=== PATIENT | male | born 1945 | race Caucasian/White ===

== ENCOUNTER 2019-07-09 23:57 | Emergency (ER) | payer BC, OTHER ==
[~2019-07-09] VITALS: Ht 185.4 cm; Wt 90.7 kg
[~2019-07-09 23:57] MED LIST: AMITRIPTYLINE H50 M2 PO; ASA81BEC; ASPIRIN EC81 M1; ASPIRIN EC81 M1 PO; ASPIRIN325 PO; ASPIRIN81 M2 PO; CELEXA 20 MG TA20 M1 PO; CLOPIDOGREL75 MG PO; ESCITALOPRAM OX20 MG PO; GLUCOPHAGE1000 MG; GLUCOPHAGE1000 MG PO; GLUCOPHAGE850 MG PO; GLUCOTROL10 MG; GLUCOTROL5 MG; GLUCOTROL5 MG PO; IBUPROFEN 600600 M1 PO; INVOKANA300 MG PO; LISINOPRIL5 MG; LISINOPRIL5 MG PO; LOPRESSOR25; LOPRESSOR25 PO; LYRICA 75 MG CA75 MG PO; METOPROLOL SUCC25 M1 PO; NEURONTIN 300300 M1 PO; NITROGLYCERIN0.4 MG; NITROGLYCERIN0.4 MG SL; NORVASC 2.5 MG2.5 M1 PO; NORVASC2.5 MG PO; PEPCID40 MG PO; PLAVIX 75 MG TA75 M1; PLAVIX 75 MG TA75 M1 PO; SIMVASTATIN40 MG; SIMVASTATIN40 MG PO; ULTRAM 50MG TAB50 MG PO; ZOFRAN ODT4 MG PO
[2019-07-10] MEDS ORDERED: INSULIN (00:02)
[2019-07-10 00:55] LABS: ABSOLUTE NEUTROPHILS 4.7 thou/uL (1.4-8.2); BASOPHILS 0.5 % (0.0-2.0); EOSINOPHILS 1.8 % (0.0-3.0); HEMATOCRIT 40.8 % (42.0-52.0); HEMOGLOBIN 13.6 gm/dL (14.0-18.0); LYMPHOCYTES 23.1 % (24.0-44.0); MCH 30.7 pg (26.0-34.0); MCHC 33.5 g/dL (28.0-37.0); MCV 91.7 fL (80.0-100.0); MONOCYTES 7.7 % (1.0-8.0); PLATELET COUNT 143 thou/uL (150-400); POLYS 66.9 % (36.0-66.0); RBC 4.45 mil/uL (4.50-6.00); RDW 13.4 % (10.5-14.5)
[2019-07-10 00:58] LABS: ANION GAP 7 mmol/L (7-16); BUN 22 mg/dL (7-18); CALCIUM 8.5 mg/dL (8.5-10.1); CHLORIDE 101 mmol/L (98-107); CO2 31 mmol/L (21-32); CREATININE 0.9 mg/dL (0.7-1.3); GLUCOSE 193 mg/dL (74-106); POTASSIUM 4.3 mmol/L (3.5-5.1); SODIUM 139 mmol/L (136-145)
[2019-07-10 01:08] LABS: ALBUMIN 3.3 g/dL (3.4-5.0); DIRECT BILIRUBIN < 0.1 mg/dL (<0.1-0.2); SGOT 13 U/L (15-37); SGPT 18 U/L (30-65); TOTAL BILIRUBIN 0.2 mg/dL (<0.1-1.0); TOTAL PROTEIN 7.1 g/dL (6.4-8.2); TROPONIN-I <0.06 ng/mL (<0.06)
[2019-07-10] MEDS ORDERED: GUAIFEN-CODEINE10 ML PO (02:45)
[2019-07-10] MEDS ORDERED: TESSALON PERLE100 MG PO (02:45)
[2019-07-10 03:04] VITALS: BP 131/75
--- NOTE | 2019-07-11 08:13 | EKG ---
[facility] [place] [address] ELECTROCARDIOGRAM REPORT Name: SCOTT JONES Room #: DEP [facility].R.#: [id number] Admission: 07/09/19 Attend Phys: Discharge: 07/10/19 Date of : 49 Report #: [id number] THIS REPORT FOR: cc: Christiano Ramos MD, Rene P. MD Lundgren,Marcello Méndez MD [facility] ~ THIS REPORT FOR: //name// [facility] ED Test Date: 2019-07-10 Test Time: 00:23:37 Pat Name: SCOTT JONES Department: Room: Gender: Rn Transport: DUGLAS : 1945 Requested By: Tosin Pires Order Number: [id number] MD: Marcello Manzanares Measurements Intervals [place] Rate: 73 P: 48 LA: 137 QRS: 73 QRSD: 103 T: 43 QT: 416 QTc: 459 Interpretive Statements Sinus rhythm Minimal diffuse ST elevation Compared to ECG 07/30/2013 17:09:28 no significant change was found Electronically Signed On 07-11-2019 8:12:11 SUPERVISOR TWISTING DEPARTMENT by Marcello Manzanares [email or web address] <ELECTRONICALLY SIGNED> By: Marcello Manzanares MD, [facility] 07/11/19 0812 0023 0023 Marcello Manzanares MD, [facility] /EPI
== END 2019-07-10 03:05 | disposition home or self-care (01) ==
LOC: ER 23:57
PROVIDERS: Emergency Medicine
DX: J11.1 Influenza due to unidentified influenza virus with other respiratory manifestations (principal); E11.9 Type 2 diabetes mellitus without complications; I10 Essential (primary) hypertension; Z79.899 Other long term (current) drug therapy; Z79.4 Long term (current) use of insulin; Z87.891 Personal history of nicotine dependence; Z95.5 Presence of coronary angioplasty implant and graft

== ENCOUNTER 2019-10-07 12:25 | Inpatient (IN) | payer BC, OTHER ==
[~2019-10-07] VITALS: Ht 185.4 cm; Wt 64.1 kg
[~2019-10-07 12:25] MED LIST changes: +GUAIFEN-CODEINE10 ML PO; +INSULIN; +TESSALON PERLE100 MG PO
--- NOTE | 2019-10-07 12:25 | NUR ---
PT IN THE WAITING ROOM ON THE PHONE WITH THE DOCTOR, PT WOULD NOT COME IN THE TRIAGE ROOM FOR AN EKG
[2019-10-07 12:54] VITALS: BP 126/69
[2019-10-07 13:16] LABS: ABSOLUTE NEUTROPHILS 3.4 thou/uL (1.4-8.2); BASOPHILS 0.8 % (0.0-2.0); EOSINOPHILS 1.6 % (0.0-3.0); HEMATOCRIT 44.9 % (42.0-52.0); HEMOGLOBIN 15.3 gm/dL (14.0-18.0); LYMPHOCYTES 34.5 % (24.0-44.0); MCH 31.6 pg (26.0-34.0); MCHC 34.2 g/dL (28.0-37.0); MCV 92.3 fL (80.0-100.0); MONOCYTES 8.7 % (1.0-8.0); POLYS 54.4 % (36.0-66.0); RBC 4.86 mil/uL (4.50-6.00); RDW 13.4 % (10.5-14.5); WBC 6.2 thou/uL (4.0-11.0)
[2019-10-07] MEDS ORDERED: GLIPIZIDE 10 MG10 MG PO (13:17)
[2019-10-07] MEDS ORDERED: PRINIVIL10 MG PO (13:20)
[2019-10-07] MEDS ORDERED: METOPROLOL TART25 MG PO (13:22)
[2019-10-07 13:23] LABS: ANION GAP 8 mmol/L (7-16); BUN 12 mg/dL (7-18); CALCIUM 8.8 mg/dL (8.5-10.1); CHLORIDE 101 mmol/L (98-107); CO2 28 mmol/L (21-32); CREATININE 0.9 mg/dL (0.7-1.3); GLUCOSE 191 mg/dL (74-106); POTASSIUM 4.2 mmol/L (3.5-5.1); SODIUM 137 mmol/L (136-145)
[2019-10-07] MEDS ORDERED: LEXAPRO 10 MG T10 M1 PO (13:23)
[2019-10-07 13:34] LABS: ALBUMIN 3.9 g/dL (3.4-5.0); SGOT 14 U/L (15-37); SGPT 22 U/L (30-65); TOTAL BILIRUBIN 0.3 mg/dL (0.2-1.0); TROPONIN-I <0.06 ng/mL (<0.06)
[2019-10-07 13:45] LABS: LARGE PLATELETS RARE; PLATELET COUNT 147 thou/uL (150-400)
[2019-10-07 15:05] VITALS: BP 124/59
[2019-10-07 15:59] VITALS: BP 127/69
[2019-10-07 16:30] VITALS: BP 112/66
[2019-10-07 16:45] VITALS: BP 112/66
--- NOTE | 2019-10-07 18:33 | NUR ---
PT CARE ASSUMED AT 1615. ASSESSMENTS CHARTED. MEDICATION CHARTED. PT ARRIVED FROM ER. CARDIAC CATH PT OF DR DAHL; CAME IN EARLY DUE TO CHEST PAIN. COMPLAINED OF SLIGHT RT CHEST PAIN. VSS. STRIP .
[2019-10-07 19:57] VITALS: BP 139/66
[2019-10-08] VITALS (16 sets, daily range): BP systolic 103–147; BP diastolic 52–89
[2019-10-08 05:37] LABS: HEMATOCRIT 45.7 % (42.0-52.0); HEMOGLOBIN 15.4 gm/dL (14.0-18.0); MCH 31.1 pg (26.0-34.0); MCHC 33.8 g/dL (28.0-37.0); RBC 4.97 mil/uL (4.50-6.00); RDW 13.4 % (10.5-14.5); WBC 5.8 thou/uL (4.0-11.0)
[2019-10-08 05:49] LABS: CALCIUM 8.6 mg/dL (8.5-10.1); CREATININE 0.6 mg/dL (0.7-1.3)
[2019-10-08 05:50] LABS: CHOLESTEROL 151 mg/dL (<200); HDL CHOLESTEROL 31 mg/dL (>40); LDL CHOLESTEROL 76 mg/dL (<100); TC:HDL 4.9 Ratio (Not establshd); TRIGLYCERIDE 223 mg/dL (<150); VLDL 45 mg/dL (<40)
[2019-10-08 06:05] LABS: SERUM ASSESSMENT Clear
--- NOTE | 2019-10-08 08:03 | NUR ---
ASSESSMENTS CHARTED, MEDS GIVEN CHARTED. PATIENT RESTING IN BED DURING SHIFT. PATIENT WAS VERY ANXIOUS AND NERVOUS DURING THE BEGINNING OF THE SHIFT. PATIENT RELAXED HOSPITAL WORKINGS AND PROCEDURES WERE DISCUSSED. PATIENT IS SCHEDULED FOR THE WASH PLANT OPERATOR THIS MORNING. HAS BEEN NPO SINCE MIDNIGHT. ACHS, NO COVERAGE NEEDED AT HS. FALL PRECAUTIONS IN PLACE DURING SHIFT.
--- NOTE | 2019-10-08 08:30 | EKG ---
[facility] [place] [address] ELECTROCARDIOGRAM REPORT Name: SCOTT JONES Room #: 203-P ADM IN M.R.#: [id number] Admission: 10/07/19 Attend Phys: Omar Ford MD Discharge: Date of : 49 Report #: [id number] THIS REPORT FOR: cc: Christiano Ramos MD, Rene P. MD Lundgren,Marcello Méndez MD [facility] ~ THIS REPORT FOR: //name// [facility] ED Test Date: 2019-10-07 Test Time: 12:50:47 Pat Name: SCOTT JONES Department: Room: 203 P Gender: M Powertrain Design Engineer: KRISTIAN : 1945 Requested By: Roberto Paredes Order Number: [id number] MD: Marcello Manzanares Measurements Intervals [place] Rate: 69 P: 9 MO: 170 QRS: -18 QRSD: 106 T: 28 QT: 407 QTc: 436 Interpretive Statements Sinus rhythm Inferior infarct, old No previous ECGs available for comparison Electronically Signed On 10-08-2019 8:27:57 CDT by Marcello Manzanares [email or web address] <ELECTRONICALLY SIGNED> By: Marcello Manzanares MD, [facility] 10/08/19 0827 1250 1250 Marecllo Manzanares MD, [facility] /EPI
--- NOTE | 2019-10-08 16:16 | CATHLAB ---
[facility] [place] [address] INVASIVE PROCEDURE REPORT Name: SCOTT JONES Room #: 211-P ADM IN M.R.#: [id number] Admission: 10/07/19 Attend Phys: Omar Ford MD Discharge: Date of : 49 Report #: [id number] THIS REPORT FOR: cc: Christiano Ramos MD, Rene P. MD Park, Jin S. MD ~ APPROVED REPORT Study performed: 10/08/2019 07:42:52 Patient Details Patient Status: In-Patient Room #: The patient is a 73 year-old male Event Personnel Maninder Canales Officer Lieutenant, María Howard RN RN, Marlon Haynes RN RN, Martinez Julio RN, Monitor, Dixon, Karen Scrub Procedures Performed Left Heart Cath Indication Dyspnea, Unstable angina , Chest pain Risk Factors Hypercholesterolemia, Coronary Artery DiseaseHypertension, Diabetes Previous Procedures/Diagnoses Previous PCI, Previous [place] Procedure Narrative The Right Groin^ was infiltrated with 1% Lidocaine subcutaneous anesthesia. A PINNACLE 4FR Sheath #[id number] sheath was inserted into the RFA. Coronary angiography was performed using coronary diagnostic catheters. The right coronary system was accessed and visualized with a JR4 catheter. The left coronary system was accessed and visualized with a JL5 catheter. The left ventricle was accessed and visualized with a angled pigtail catheter. Left ventricular/Aortic Valve gradient assessed via catheter pullback. Left ventriculogram was performed in 30 degree projection. Hemostasis was obtained with manual pressure following sheath removal without any complications. The patient tolerated the procedure well and there were no complications associated with the procedure. There was no [facility] [address] [place] [address] INVASIVE PROCEDURE REPORT Name: SCOTT JONES Room #: 211-P ADM IN ..#: [id number] Admission: 10/07/19 Attend Phys: Omar Ford MD Discharge: Date of : 49 Report #: [id number] hematoma. Intraoperative Conscious Sedation Sedation start time: 08:22 Case end Time: 08:55 Fentanyl 50 mcg Versed 1 mg Fluoro Time: 3.50 minutes Dose: DAP 7451.00 cGycm2 1984 mGy Contrast Type and Amount: Omnipaque-135ml Coronary Angiography The patient's coronary anatomy is right dominant. Diagnostic Cath Left Main This is a large-caliber vessel with mild disease distally. LAD There is moderate disease in the proximal segment. There is a patent stent in the midsegment. Just before the stent, there is a de mohini stenosis of 70%. Diagonal 1 There is an ostial stenosis of the first diagonal artery, 50%. There is a stent in the proximal segment with a severe restenotic lesion of 70%. Circumflex This is a small caliber vessel with no flow-limiting lesions. Right Coronary The RCA is a dominant vessel with a severe restenotic lesion in the midsegment, 95%. R PDA This is a patent vessel, with no flow-limiting lesions. RPLV This is a patent vessel, with no flow-limiting lesions. Ramus This is a moderate-sized caliber vessel, divides into 2 branches supplying the anterolateral wall. This vessel is patent with no flow-limiting lesions. Left Ventriculography The left ventricle is normal in size with normal contractility. The left ventricular ejection fraction is estimated to be >55%. There is subtle hypokinesis of the anterior lateral and apical segments. Hemodynamics The aortic pressure is 113/72 mmHg with a mean of 94 mmHg. The left ventricular pressure is 134/4 mmHg with a mean of mmHg. The left ventricular end diastolic pressure is 16 mmHg. [facility] [address] [address] INVASIVE PROCEDURE REPORT Name: SCOTT JONES Room #: 211-P [facility] IN M.R.#: [id number] Admission: 10/07/19 Attend Phys: Omar Ford MD Discharge: Date of : 49 Report #: [id number] Conclusion 1. Severe multivessel disease involving the LAD, diagonal, and RCA. 2. Normal LV systolic function with subtle hypokinesis of the anterolateral and apical regions. 3. Recommend CV surgical consultation. 4. Recommend guideline directed medical therapy and risk factor management. <ELECTRONICALLY SIGNED> By: Maninder Canales MD 10/08/19 1614 1614 1614 Maninder Canales MD /INF
--- NOTE | 2019-10-08 17:52 | NUR ---
PT CARE ASSUMED AT 0700. ASSESSMENTS CHARTED. MEDICATIONS CHARTED. PT TO [facility] AT 0735; RETURNED AT 0940. HEMOSTASIS AT 0911. BEDREST COMPLETE. INCISION SITE C/D/I. NO INTERVENTIONS PERFORMED. ADDITIONAL CARDIAC CATH SCHEDULED FOR 10/09/19. PT TO BE NPO AFTER 0000.
[2019-10-09] VITALS (12 sets, daily range): BP systolic 103–141; BP diastolic 54–89
[2019-10-09 05:29] LABS: MCH 30.8 pg (26.0-34.0); MCHC 33.3 g/dL (28.0-37.0); MCV 92.5 fL (80.0-100.0); RBC 4.86 mil/uL (4.50-6.00); RDW 13.4 % (10.5-14.5); WBC 5.6 thou/uL (4.0-11.0)
[2019-10-09 05:50] LABS: CALCIUM 8.6 mg/dL (8.5-10.1); CREATININE 0.7 mg/dL (0.7-1.3); POTASSIUM 4.2 mmol/L (3.5-5.1)
--- NOTE | 2019-10-09 07:59 | NUR ---
ASSUMMED PT CARE AT 1900, PT IS AWAKE, ALERT AND ORIENTEDX4, MAKES NEEDS KNOWN, ASSESSMENTS CHARTED, SR ON THE MONITOR, VSS, RIGHT GROIN SITE CLEAN, DRY AND INTACT, REMAINED NPO AFTER MIDNIGHT, REMAINED STABLE THROUGH THE NIGHT, PASSED ON REPORT TO DAY SHIFT NURSE
--- NOTE | 2019-10-09 10:04 | NUR ---
AAOX4. CALM. COOPERATIVE. QUESTIONS ANSWERED ABOUT CARDIAC CATH PROCEDURES. NPO AFTER MIDNIGHT FOR CATH. NSR PER TELE. DENIES CP. WILL CONTINUE TO FOLLOW CLOSELY.
--- NOTE | 2019-10-09 14:09 | HC ---
[facility] [place] [address] CONSULTATION Name: SCOTT JONES Room #: 211-P ADM IN M.R.#: [id number] Admission: 10/07/19 Attend Phys: Omar Ford MD Discharge: Date of : 49 Report #: [id number] THIS REPORT FOR: cc: Christiano Ramos MD, Rene P. MD Forman, John M. MD ~ CC: Omar Ramos DATE OF SERVICE: 10/08/2019 We were asked by Dr. Canales to see the patient. HISTORY OF PRESENT ILLNESS: The patient is a 73-year-old with exertional angina. He was admitted yesterday. The patient had been scheduled to have cardiac catheterization today, but came in with exertional chest pain. The patient states that he had been previously tested negative for COVID. He has history of diabetes and cardiac stents placed in 2011 and 2012. MEDICATIONS: At home include simvastatin, amlodipine, Invokana, insulin, glipizide, lisinopril, metoprolol, Lexapro, Glucophage, aspirin. 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 SOCIAL HISTORY: The patient works in maintenance for [employer]. Former cigarette smoker, does use alcohol, no recreational drug use. REVIEW OF SYSTEMS: CONSTITUTIONAL: Denies fever or chills. EYES: Denies eye pain or visual change. HENT: Denies headache, rhinorrhea, sore throat. RESPIRATORY: Denies cough, shortness of breath. CARDIAC: Exertional discomfort. No pain at rest. No palpitations. GASTROINTESTINAL: No nausea, vomiting, diarrhea. GENITOURINARY: No urgency, frequency, blood. MUSCULOSKELETAL: No bone or joint pain. SKIN: No rash or infection. NEUROLOGIC: No motor or sensory dysfunction. ENDOCRINE: No goiter. No palpitations. No tremor. HEMATOLOGIC: Denies bruisability or bleeding. PHYSICAL EXAMINATION: GENERAL: The patient is lying in bed comfortably. VITAL SIGNS: Temperature 36.7, heart rate 69, respiratory rate 14, O2 sat 95 on room air. HEENT: No scleral icterus, no arcus. [facility] [address] [place] [address] CONSULTATION Name: SCOTT JONES Room #: 211-P [facility] IN .R.#: [id number] Admission: 10/07/19 Attend Phys: Omar Ford MD Discharge: Date of : 49 Report #: [id number] NECK: No mass, no bruit. CHEST: Clear to auscultation. HEART: Rhythm regular, no murmur. ABDOMEN: Soft. EXTREMITIES: No clubbing, cyanosis or edema. The patient has a mesomorphic habitus. VASCULAR: Strong distal pulses. No obvious saphenous vein problems. SKIN: No rash or infection. NEUROLOGIC: No motor or sensory dysfunction. MUSCULOSKELETAL: No bone or joint asymmetry or deformity. ASSESSMENT: The patient has coronary artery disease. Catheterization today demonstrated in-stent stenosis related to a right coronary stent. The left anterior descending and first diagonal have some mild stenosis related to in-stent disease, but probably not critically narrow in these spots. I discussed coronary artery bypass surgery which in general would be preferred for multivessel disease and with diabetes mellitus and compared and contrasted it with limited treatment using stent for the right coronary. The patient prefers the limited approach and understands that there may be progression of disease in the future. Risks and details, options and alternatives were discussed in full. The patient understands all of this and prefers the stent approach. It is a privilege to participate in this challenging patient's care. Thank you for the consult. <ELECTRONICALLY SIGNED> By: Calvin Lubin MD 10/09/19 1409 1310 1412 Calvin Lubin MD /nt
--- NOTE | 2019-10-09 14:25 | NUR ---
Chart reviewed and case discussed with the care team. Pt lives alone in an apt and is indep with gait and adl's. He works fulltime and has health ins coverage through his employer. He has a pcp and powder worker tnt for f/u care at [place]. He is not interested in CTS consult for heart surgery at this time. Will follow along should dc needs arise.
--- NOTE | 2019-10-09 14:38 | NUR ---
BACK FROM OXYGRAPH OPERATOR BY BED, REPORT FROM SUZI MAYO. AAOX4. DENIES PAIN. LEFT GROIN SITE CDI. VSS. BEDREST UNTIL 1630.
[2019-10-09 16:01] LABS: HEMATOCRIT 43.8 % (42.0-52.0); HEMOGLOBIN 14.8 gm/dL (14.0-18.0); MCH 31.1 pg (26.0-34.0); MCHC 33.8 g/dL (28.0-37.0); MCV 91.9 fL (80.0-100.0); RBC 4.76 mil/uL (4.50-6.00); RDW 13.3 % (10.5-14.5); WBC 6.1 thou/uL (4.0-11.0)
--- NOTE | 2019-10-09 16:08 | CATHLAB ---
[facility] [address] INVASIVE PROCEDURE REPORT Name: SCOTT JONES Room #: 211-P ADM IN M.R.#: [id number] Admission: 10/07/19 Attend Phys: Omar Ford MD Discharge: Date of : 49 Report #: [id number] THIS REPORT FOR: cc: Christiano Ramos MD, Rene P. MD Park, Jin S. MD ~ APPROVED REPORT Study performed: 10/09/2019 12:03:42 Patient Details Patient Status: In-Patient Room #: 211 The patient is a 73 year-old male Event Personnel Maninder Canales Insole And Heel Stiffener, Marlon Haynes RN RN, María Howard RN RN, Brett Richards RTR Monitor, Kimber Dinh RTR Scrub Procedures Performed Art Access - L femoral artery* ROBERT Place w/wo Plasty Single LAD 905842 ROBERT Place w/wo Plasty Single RCA 199643 39222 Initial Mod Sed Same Phys/QHP Gr5y 549911 56127 Mod Sed Same Phys/QHP Ea 426559 Hemostasis w/ Mynx Indication Unstable angina , Please see the diagnostic cardiac catheterization on October 07 for full details of the coronary anatomy. He was evaluated by CV surgery and the patient has decided against it. He presents for staged angioplasty involving the LAD and RCA. Risk Factors Hypercholesterolemia, Coronary Artery DiseaseHypertension, Diabetes Previous Procedures/Diagnoses Previous PCI, Previous [place] Procedure Narrative The patient was brought electively to the Cardiac Catheterization Laboratory and was prepped and draped in a sterile manner. The Left Groin^ was infiltrated with 1% Lidocaine subcutaneous anesthesia. A PINNACLE 6FR Sheath #[id number] sheath was inserted into the LFA^. Coronary angiography was performed using coronary diagnostic catheters. Closure device was deployed with a Fr MYNXGRIP 6/7F [facility] [address] INVASIVE PROCEDURE REPORT Name: SCOTT JONES Room #: 211-P [facility] IN .R.#: [id number] Admission: 10/07/19 Attend Phys: Omar Ford MD Discharge: Date of : 49 Report #: [id number] #[id number]. The patient tolerated the procedure well and there were no complications associated with the procedure. There was no hematoma. Intraoperative Conscious Sedation Sedation start time: 12:30 Case end Time: 13:40 Fentanyl 50 mcg Versed 1 mg Fluoro Time: 17.22 minutes Dose: DAP 11950.40 cGycm2 2247 mGy Contrast Type and Amount: Omnipaque 375 ml Hemodynamics The aortic pressure is 130/60 mmHg with a mean of mmHg. PCI Technique Lesion Percutaneous coronary intervention was performed on the mid right coronary artery. The lesion stenosis prior to intervention was 95% with IVON 3 flow. A JR4 SH Guide Catheter was used to engage the RCA ostium. A Luge Wire .014 x 182CM #[id number] Interventional Guidewire was used to cross the lesion. BALLOON DILATION A Balloon catheter TREK RX 2.5 X 12 #[id number] was inserted and inflated up to 10.00atm for 14seconds. Additional Inflation: 10.00atm for 12seconds. Additional Inflation: 10.00atm for 11seconds. STENT DEPLOYMENT A stent RESOLUTE OSBALDO RX 2.5 X 18 #[id number] was inserted and inflated up to 14.00atm for 25seconds. POST STENT DEPLOYMENT BALLOON DILATION A Balloon catheter TREK NC RX 2.75 X 12 #[id number] was inserted and inflated up to 18.00atm for 21seconds. Additional Inflation: 18.00atm for 23seconds. Additional Inflation: 18.00atm for 14seconds. Final angiography reveals 0 % stenosis with IVON 3 flow. PCI Technique Lesion 2 Percutaneous Coronary Intervention was performed on the proximal left anterior descending artery segment. The lesion stenosis prior to intervention was 75% with IVON 3 flow. A VISTA 6FR XB 4 #[id number] Guide Catheter was used to engage the ostium. A Luge Wire .014 x 182CM #[id number] Interventional Guidewire was used to cross the lesion. [address] [address] INVASIVE PROCEDURE REPORT Name: SCOTT JONES Room #: 211-P [facility] IN M.R.#: [id number] Admission: 10/07/19 Attend Phys: Omar Ford MD Discharge: Date of : 49 Report #: [id number] Balloon Dilation A Balloon catheter TREK RX 2.5 X 12 #[id number] was inserted and inflated up to 10.00atm for 8seconds. Additional Inflation: 10.00atm for 12seconds. Stent Deployment A stent RESOLUTE OSBALDO RX 2.5 X 15 #[id number] was inserted and inflated up to 12.00atm for 22seconds. Additional Inflation: 18.00atm for 14seconds. Post Stent Deployment Balloon Dilation A Balloon catheter TREK NC RX 2.75 X 12 #[id number] was inserted and inflated up to 18.00atm for 15seconds. Additional Inflation: 14.00atm for 15seconds. Additional Inflation: 18.00atm for 16seconds. Final angiography reveals 0 % stenosis with IVON 3 flow. Conclusion 1. Successful insertion of drug-eluting stents into the RCA and LAD. 2. Recommend dual antiplatelet therapy and aggressive risk factor management. <ELECTRONICALLY SIGNED> By: Maninder Canales MD 10/09/19 1606 05 160 Maninder Canales MD /INF
[2019-10-09 16:13] LABS: CALCIUM 8.7 mg/dL (8.5-10.1); POTASSIUM 4.4 mmol/L (3.5-5.1)
[2019-10-10 00:01] VITALS: BP 1121/69; BP 121/69
[2019-10-10 04:19] VITALS: BP 109/59
[2019-10-10 04:25] VITALS: BP 109/59
[2019-10-10 06:02] LABS: HEMATOCRIT 43.7 % (42.0-52.0); HEMOGLOBIN 14.9 gm/dL (14.0-18.0); MCH 31.3 pg (26.0-34.0); MCHC 34.1 g/dL (28.0-37.0); MCV 91.8 fL (80.0-100.0); RBC 4.76 mil/uL (4.50-6.00); RDW 13.5 % (10.5-14.5); WBC 6.4 thou/uL (4.0-11.0)
[2019-10-10 06:38] LABS: ALBUMIN 3.5 g/dL (3.4-5.0); CALCIUM 8.6 mg/dL (8.5-10.1); CREATININE 0.8 mg/dL (0.7-1.3); POTASSIUM 3.9 mmol/L (3.5-5.1); TOTAL BILIRUBIN 0.3 mg/dL (0.2-1.0); TOTAL PROTEIN 7.1 g/dL (6.4-8.2)
[2019-10-10 07:00] VITALS: BP 120/58
--- NOTE | 2019-10-10 07:50 | NUR ---
SLEPT MOST OF SHIFT. WORKING ON GOALS AND PLAN OF CARE FOR NOC. UP AD BELEN IN ROOM WITH STEADY GAIT. BILATERAL GROIN DRESSINGS REMAIN D/I, NO BLEEDING OR HEMOTOMA. PROGRESSING SLOWLY TOWARDS DISCHARGE GOALS. CONTINUE TO ASSES.
[2019-10-10] MEDS ORDERED: EFFIENT10 MG PO (08:02)
--- NOTE | 2019-10-10 08:43 | EKG ---
[facility] [place] [address] ELECTROCARDIOGRAM REPORT Name: SCOTT JONES Room #: 211-P ADM IN M.R.#: [id number] Admission: 10/07/19 Attend Phys: Omar Ford MD Discharge: Date of : 49 Report #: [id number] THIS REPORT FOR: cc: Christiano Ramos MD, Rene P. MD Lundgren,Marcello Méndez MD [facility] ~ THIS REPORT FOR: //name// [facility] Test Date: 2019-10-09 Test Time: 15:58:14 Pat Name: SCOTT SCHNEIDERGABRIELLE Department: Room: 211 P Gender: M Isotope Technician: Edison MOLINA : 1945 Requested By: Maninder Canales Order Number: [id number] MD: Marcello Manzanares Measurements Intervals [place] Rate: 71 P: 31 CT: 148 QRS: 10 QRSD: 100 T: 41 QT: 404 QTc: 439 Interpretive Statements Sinus rhythm Inferior infarct, old Minimal diffuse ST segment elevation Compared to ECG 10/07/2019 12:50:47 ST (T wave) deviation now present Electronically Signed On 10-10-2019 8:41:03 CDT by Marcello Manzanares [email or web address] <ELECTRONICALLY SIGNED> By: Marcello Manzanares MD, [facility] 10/10/19 0841 1558 1558 Marcello Manzanares MD, [facility] /EPI
--- NOTE | 2019-10-10 08:50 | EKG ---
[facility] [place] [address] ELECTROCARDIOGRAM REPORT Name: SCOTT JONES Room #: 211-P ADM IN M.R.#: [id number] Admission: 10/07/19 Attend Phys: Omar Ford MD Discharge: Date of : 49 Report #: [id number] THIS REPORT FOR: cc: Christiano Ramos MD, Rene P. MD Lundgren,Marcello Méndez MD [facility] ~ THIS REPORT FOR: //name// [facility] Test Date: 2019-10-10 Test Time: 07:17:28 Pat Name: SCOTT JONES Department: Room: 211 P Gender: M Roll Reclaimer: JONY : 1945 Requested By: Maninder Canales Order Number: [id number] MD: Marcello Manzanares Measurements Intervals [place] Rate: 73 P: 11 DE: 144 QRS: -35 QRSD: 100 T: 13 QT: 405 QTc: 447 Interpretive Statements Sinus rhythm Left axis deviation Minimal, diffuse ST segment elevation Compared to ECG 10/07/2019 12:50:47 ST segment abnormality is slightly less prominent Electronically Signed On 10-10-2019 8:48:44 CDT by Marcello Manzanares [email or web address] <ELECTRONICALLY SIGNED> By: Marcello Manzanares MD, [facility] 10/10/19 0848 6 6 Marcello Manzanares MD, [facility] /EPI
[2019-10-10 11:31] VITALS: BP 120/58
--- NOTE | 2019-10-10 13:30 | NUR ---
ASSUMED CARE OF PATIENT AT 0700. ASSESSMENT COMPLETED. PATIENT HAS BILATERAL GROIN SITES WHICH ARE FREE FROM HEMATOMA, EDEMA OR DRAINAGE. PATIENT DENIES CHEST PAIN. PATIENT ANXIOUS TO LEAVE TODAY. IV AND TELE REMOVED. PATIENT TAKEN VIA WALKING ESCORT TO THE ED AT 1245 TO BE DRIVEN HOME BY HIS FAMILY MEMBER. DISCHARGE PAPERWORK REVIEWED AND SIGNED IN ADDITION TO A WORK RELEASE AND NEW SCRIPT AND INFORMATION ABOUT THAT NEW MED. PATIENT STATES THAT HE FEELS BETTER THAN HE DID WHEN HE ARRIVED.
== END 2019-10-10 12:50 | disposition home or self-care (01) | DRG 247 ==
LOC: ER 12:25 → 2N 14:55 → EROBS 14:55 → 2N 15:59
PROVIDERS: Emergency Medicine; Internal Medicine Cardiovascular Disease; Nurse Practitioner; ADMIT Hospitalist
PROC: B2111ZZ Fluoroscopy of Multiple Coronary Arteries using Low Osmolar Contrast (ICD-10-PCS; principal; 2019-10-08)
PROC: 4A023N7 Measurement of Cardiac Sampling and Pressure, Left Heart, Percutaneous Approach (ICD-10-PCS; principal; 2019-10-08)
PROC: B2151ZZ Fluoroscopy of Left Heart using Low Osmolar Contrast (ICD-10-PCS; principal; 2019-10-08)
PROC: 027135Z Dilation of Coronary Artery, Two Arteries with Two Drug-eluting Intraluminal Devices, Percutaneous Approach (ICD-10-PCS; 2019-10-09)
PROC: B2111ZZ Fluoroscopy of Multiple Coronary Arteries using Low Osmolar Contrast (ICD-10-PCS; 2019-10-09)
DX: I25.110 Atherosclerotic heart disease of native coronary artery with unstable angina pectoris (principal); E11.9 Type 2 diabetes mellitus without complications; I25.10 Atherosclerotic heart disease of native coronary artery without angina pectoris; I10 Essential (primary) hypertension; E78.5 Hyperlipidemia, unspecified; Z60.2 Problems related to living alone; G47.00 Insomnia, unspecified; F32.9 Major depressive disorder, single episode, unspecified; E53.8 Deficiency of other specified B group vitamins; Z91.010 Allergy to peanuts; Z87.891 Personal history of nicotine dependence; Z79.82 Long term (current) use of aspirin; Z95.5 Presence of coronary angioplasty implant and graft; Z79.899 Other long term (current) drug therapy
CPT/HCPCS: 10081; 10797

== ENCOUNTER → 2019-11-04 | Outpatient (CLI) | payer BC, OTHER ==
[~2019-11-04] MED LIST changes: +EFFIENT10 MG PO; +GLIPIZIDE 10 MG10 MG PO; +LEXAPRO 10 MG T10 M1 PO; +METOPROLOL TART25 MG PO; +PRINIVIL10 MG PO
== END ==
LOC: RAD 09:31
PROVIDERS: ATTEND Family Medicine
DX: J98.11 Atelectasis (principal); R91.8 Other nonspecific abnormal finding of lung field

== ENCOUNTER → 2019-11-22 | Outpatient (CLI) | payer BC, OTHER | LOC: RAD 12:25 | PROVIDERS: ATTEND Family Medicine | DX: R91.8 Other nonspecific abnormal finding of lung field (principal); J98.4 Other disorders of lung ==

== ENCOUNTER → 2019-11-25 | Outpatient (CLI) | payer BC, OTHER | LOC: SJCVC 09:25 | PROVIDERS: ATTEND Internal Medicine Cardiovascular Disease | DX: R94.31 Abnormal electrocardiogram [ECG] [EKG] (principal); I25.10 Atherosclerotic heart disease of native coronary artery without angina pectoris; I10 Essential (primary) hypertension; E78.00 Pure hypercholesterolemia, unspecified; Z79.899 Other long term (current) drug therapy; Z87.891 Personal history of nicotine dependence ==

== ENCOUNTER 2020-04-26 18:26 | Emergency (ER) | payer BC, OTHER ==
[~2020-04-26] VITALS: Ht 177.8 cm; Wt 90.7 kg
[2020-04-26] MEDS ORDERED: PENICILLIN VK500 M1 PO (19:21)
[2020-04-26] MEDS ORDERED: NORCO 5-325 TA1 EAC2 PO (19:21)
[2020-04-26 19:56] VITALS: BP 177/80
== END 2020-04-26 19:56 | disposition home or self-care (01) ==
LOC: ER 18:26
DX: K03.2 Erosion of teeth (principal); E11.9 Type 2 diabetes mellitus without complications; Z95.818 Presence of other cardiac implants and grafts; Z79.899 Other long term (current) drug therapy; Z79.82 Long term (current) use of aspirin; Z91.018 Allergy to other foods; Z91.010 Allergy to peanuts; Z87.891 Personal history of nicotine dependence